=== PATIENT | male | born 1980 | race Caucasian/White ===

== ENCOUNTER 2019-07-25 07:41 | Emergency (ER) | payer SELFPAY ==
[2019-07-25 07:44] VITALS: BP 143/92; PULSE 88; RESP 18; TEMP 36.7; O2SAT 97
[2019-07-25 07:49] LABS: Bilirubin Negative (Negative); Blood Negative (Negative); Clarity Clear (Clear); Glucose Negative (Negative); Ketones Negative (Negative); Leukocyte Esterase Negative (Negative); Nitrite Negative (Negative); Specific Gravity <= 1.005 (1.005-1.025); Urobilinogen 0.2 EU/dL (Up TO 0.2)
--- NOTE | 2019-07-25 07:57 | W.ED.GENAD ---
Discharge Plan Disposition Patient Disposition: HOME Condition: Stable Discharge Details Chief Complaint: Urinary Clinical Impression: Dysuria Primary Care Provider: Mya,Local ED Provider: Kvng Paige Home Meds and New Rx's Prescriptions: Continued cholecalciferol (vitamin D3) [Vitamin D3] 1,000 unit Capsule 1,000 unit PO Q2D RF: 0 metoprolol tartrate 25 mg Tablet 25 mg PO BID RF: 0 vitamin B complex-folic acid [Super B Maxi Complex] 0.4 mg Tablet 1 tab PO DAILY RF: 0 Discharge Instructions Additional Instructions: It is important that your partner gets treated as well if symptoms continue see your primary care provider return to the emergency department for fevers, worsening pain or if you feel more ill Medical Decision Making 39 yo male comes in with cc of burning with urination and some discharge. States he was treated for chlamydia/gonorrhea last month at urgent care and symptoms returned. He has been sexually active with the same partner but the partner was never treated, he states she is going to a clinic for tx today. He has no scrotal tenderness or swelling on exam and normal penis without discharge. Suspect he has gonorrhea/chlamydia again from partner not getting treated. UA unremarkable so doubt uti. Will tx with ceftriaxone and azithro Differential Diagnosis Differential Diagnosis: std, uti HPI General Mode of arrival: ambulatory. Date/Time Provider Initiated Documentation: 07/25/19 07:51. Limitations to Documentation: no limitations. Information obtained by: patient. History of Present Illness 39 year old M presents to the emergency department with the chief complaint of dysuria, and is localized to the head. Patient started experiencing this day(s) (4) and it has been constant. No relieving factors improve symptom(s), No exacerbating factors reported . Patient did receive the following treatments prior to arrival, none Related Data Home Medications Medication Instructions Recorded Confirmed cholecalciferol (vitamin D3) 1,000 unit PO Q2D 07/25/19 07/25/19 [Vitamin D3] metoprolol tartrate 25 mg PO BID 07/25/19 07/25/19 vitamin B complex-folic acid 1 tab PO DAILY 07/25/19 07/25/19 [Super B Maxi Complex] Allergies Allergy/AdvReac Type Severity Reaction Status Date / Time No Known Allergies Allergy Unverified 07/25/19 07:50 General Stated Complaint: Urinary MONIKA: 3 Review of Systems All systems reviewed & are unremarkable except as noted in HPI and below Constitutional Constitutional: Denies chills, Denies fever(s) and Denies weakness ENT Ears, Nose, Mouth, and Throat: Denies change in voice Cardiovascular Cardiovascular: Denies chest pain and Denies dyspnea Respiratory Respiratory: Denies cough and Denies dyspnea Gastrointestinal Gastrointestinal: Denies abdominal pain, Denies nausea and Denies vomiting Musculoskeletal Musculoskeletal: Denies joint swelling Integumentary/Breasts Skin/Breast: Denies rash Neurologic Neurologic: Denies weakness [facility] Social History Smoking/Tobacco Use Status: Never Alcohol Intake: current Alcohol Intake frequency: holidays/special occasions only Drug use: Daily Substance use type: marijuana Do you feel safe at home: Yes Do you feel safe in your relationship?: Yes Exam Const General: no acute distress Orientation: alert HENMT Head: normal to inspection Ears: external ears normal General nose exam: external nose normal Mouth: moist mucous membranes Eyes General: appearance normal, both eyes and all related structures Neck Neck: normal visual inspection Resp Effort & Inspection: normal respiratory effort and able to speak in complete sentences Cardio Rate: regular rate Penis: normal penis Skin General skin exam: no rashes or lesions noted Neuro General: alert and oriented x3 Extrem General: normal to inspection Psych Mental Status: mental status grossly normal Course Vital Signs Vital signs: Vital Signs Temperature 36.7 C 07/25/19 07:44 Pulse 88 07/25/19 07:44 Respiratory Rate 18 07/25/19 07:44 Blood Pressure 143/92 H 07/25/19 07:44 Pulse Oximetry 97 07/25/19 07:44 Temperature 36.7 C 07/25/19 07:44 Temperature Source Temporal Artery Scan 07/25/19 07:44 Pulse 88 07/25/19 07:44 Respiratory Rate 18 07/25/19 07:44 Respiratory Effort Non-Labored 07/25/19 07:49 Blood Pressure 143/92 H 07/25/19 07:44 Blood Pressure Position Sitting 07/25/19 07:44 Pulse Oximetry 97 07/25/19 07:44 Oxygen Delivery Method Room Air 07/25/19 07:44 Oxygen Flow Rate 0 07/25/19 07:44 Pain Level 1 07/25/19 07:52 Lab/Test Results Lab/Test Results: Laboratory Tests Range/Units 07/25/19 07:45 Urine Color (Yellow) Yellow Urine Clarity (Clear) Clear Urine pH (5-8) 6.0 Ur Specific [place] (1.005-1.025) <= 1.005 Urine Protein (Negative) mg/dL Negative Urine Ketones (Negative) mg/dL Negative Urine Blood (Negative) Negative Urine Nitrite (Negative) Negative Urine Bilirubin (Negative) Negative Urine Urobilinogen (Up TO 0.2) EU/dL 0.2 Ur Leukocyte Esterase (Negative) Negative Urine Glucose (Negative) mg/dL Negative
[2019-07-25] MEDS: Azithromycin 250 MG TAB 1000 MG PO (08:07)
[2019-07-25] MEDS: cefTRIAXone 250 MG VIAL IM (08:08)
[2019-07-27 08:14] LABS: Chlamydia Result Negative (Negative); GC Result Negative (Negative)
--- NOTE | 2019-08-08 11:22 | NUR.NOTE ---
Nursing Notes: Patient given negative test result, confirmed result with SANTO Hastings and SANTO Altman
== END 2019-07-25 08:28 | disposition home or self-care (01) ==
PROVIDERS: Emergency Provider Emergency Medicine
DX: R30.0 Dysuria (principal)
CPT/HCPCS: 87491; 87591; 96372; 99284; 81003; 99283; J0696